=== PATIENT | female | born 1935 | race Caucasian/White ===

== ENCOUNTER 2016-09-17 05:31 | Inpatient (IN) | payer MEDICARE, MEDICAID ==
[~2016-09-17] VITALS: Ht 154.9 cm; Wt 72.6 kg
[2016-09-17] VITALS (9 sets, daily range): BP systolic 101–131; BP diastolic 31–62
[2016-09-17] MEDS ORDERED: DONEPEZIL HCL5 M2 ORAL (05:45)
[2016-09-17] MEDS ORDERED: CELEBREX100 MG ORAL (05:45)
[2016-09-17] MEDS ORDERED: AMLODIPINE BES2.5 MG ORAL (05:45)
[2016-09-17] MEDS ORDERED: COZAAR25 MG ORAL (05:57)
[2016-09-17] MEDS ORDERED: ASPIR 8181 MG ORAL (05:57)
--- NOTE | 2016-09-17 06:03 | Emergency Room Report ---
History of Present Illness General Chief Complaint: Syncope Source: Patient, Family Member, EMS (ALTA HERNANDEZ M.D.) Present Illness HPI This is a 80-year-old female. She has a history of hypertension and hyperlipidemia. She presents with a 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. She was brought in by her grandson. He said that she's been feeling sick with flulike illness for about a week now. Tonight she got up to use the restroom. She felt lightheaded and had a 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 and bathroom. She caught herself but did hit her head. No loss of consciousness. Better when lying flat. Denies any fever or chills. Denies any nausea vomiting. No chest pain. [place] lightheaded before syncope. (ALTA HERNANDEZ M.D.) Allergies: Coded Allergies: No Known Allergies (Unverified , 09/17/16) Patient History Past Medical History: see triage record, old chart reviewed Past Surgical History: other Pertinent Family History: none Social History: Denies: smoking Now: No Immunizations: other Reviewed Nursing Documentation: PMH: Agreed, PSxH: Agreed (ALTA HERNANDEZ M.D.) Nursing Documentation-PMH Hx Hypertension: Yes Hx Diabetes: Yes Hx Cerebrovascular Accident: Yes (ALTA HERNANDEZ M.D.) Review of Systems Eye: Denies: blurred vision, eye pain ENT: Denies: ear pain, nose congestion, throat swelling Respiratory: Denies: cough, shortness of breath Cardiovascular: Denies: chest pain, palpitations Gastrointestinal: Denies: abdominal pain, diarrhea, nausea, vomiting Musculoskeletal: Denies: back pain, joint pain Skin: Denies: rash Neurological: Denies: headache, numbness Endocrine: Denies: increased thirst, increased urine Hematologic/Lymphatic: Denies: easy bruising All Other Systems: negative except mentioned in HPI (ALTA HERNANDEZ M.D.) Physical Exam Vital Signs Date Time Temp Pulse Resp B/P Pulse Ox O2 Delivery O2 Flow Rate FiO2 09/17/16 05:36 98.2 59 14 127/34 99 Room Air vitals normal Sp02 EP Interpretation: reviewed, normal General Appearance: well appearing, no apparent distress, alert Head: normocephalic, atraumatic Eyes: bilateral eye EOMI, bilateral eye PERRL ENT: hearing grossly normal, normal pharynx Neck: full range of motion, supple, no meningismus Respiratory: chest non-tender, lungs clear, normal breath sounds Cardiovascular #1: regular rate, rhythm, no murmur Gastrointestinal: normal bowel sounds, non tender, no mass, no organomegaly, no bruit, non-distended Musculoskeletal: back normal, gait/station normal, normal range of motion Psychiatric: mood/affect normal Skin: warm/dry (ALTA HERNANDEZ M.D.) Medical Decision Making Diagnostic Impression: Primary Impression: Syncope Qualified Codes: R55 - Syncope and collapse Additional Impressions: Head injury, acute Qualified Codes: S09.90XA - Unspecified injury of head, initial encounter Hyperglycemia due to type 2 diabetes mellitus Qualified Codes: E11.65 - Type 2 diabetes mellitus with hyperglycemia Anemia Qualified Codes: D64.9 - Anemia, unspecified ER Course Patient presents with syncope. Most likely secondary to dehydration and orthostatic. We'll do cardiac workup. Based on her age and other risk factors , patient will be admitted for further workup. Lab Results Impression labs unremarkable. (ALTA HERNANDEZ M.D.) ER Course Dr Hernandez endorsed patient to me to f/up UA. No UTI. Admitted for syncope. No other acute issue in ED (DEON OLEA M.D.) EKG Diagnostic Results Rate: normal Rhythm: NSR ST Segments: no acute changes (ALTA HERNANDEZ M.D.) Rhythm Strip Diag. Results EP Interpretation: yes Rhythm: NSR, no PVC's, no ectopy (ALTA HERNANDEZ M.D.) Chest X-Ray Diagnostic Results EP Interpretation: Yes Findings: no consolidation, no effusion, no pneumothorax, no acute cardiopulmonary disease Number of Views: 1 (ALTA HERNANDEZ M.D.) CT/MRI/US Diagnostic Results CT/MRI/US Diagnostic Results : Imaging Test Ordered: CT head Impression negative per radiologist. (ALTA HERNANDEZ M.D.) Last Vital Signs Date Time Temp Pulse Resp B/P Pulse Ox O2 Delivery O2 Flow Rate FiO2 09/17/16 05:46 98.2 57 14 109/39 99 Room Air Status: improved (ALTA HERNANDEZ M.D.) Status: improved (DEON OLEA M.D.) Disposition: ADMITTED INPATIENT Condition: Serious Referrals: NON PHYSICIAN (PCP) ALTA HERNANDEZ M.D. Sep 17, 2016 06:03 DEON OLEA M.D. Sep 17, 2016 08:58
[2016-09-17 06:26] LABS: ALANINE AMINOTRANSFERASE 11 U/L (3-33); ALBUMIN/GLOBULIN RATIO 1.3 (1.0-2.7); ANION GAP 15 (5-15); ASPARTATE AMINO TRANSFERASE 14 U/L (5-40); CALCIUM 8.2 mg/dL (8.6-10.2); CARBON DIOXIDE 22 mEQ/L (20-30); CHLORIDE 103 mEQ/L (98-107); CREATININE 0.7 mg/dL (0.5-0.9); HEMOLYSIS 39; POTASSIUM 4.5 mEQ/L (3.4-4.9); SODIUM 140 mEQ/L (135-145); TOTAL PROTEIN 5.8 g/dL (6.6-8.7)
[2016-09-17 06:52] LABS: BASOPHILS % (AUTO) 0.7 % (0.0-2.0); LYMPHOCYTES % (AUTO) 21.1 % (20.0-45.0); MEAN CORPUSCULAR HEMOGLOBIN 27.5 PG (27.0-31.0); MEAN CORPUSCULAR HGB CONC 32.8 G/DL (32.0-36.0); MEAN CORPUSCULAR VOLUME 84 FL (80-99); MEAN PLATELET VOLUME 7.8 FL (6.5-10.1); MONOCYTES % (AUTO) 5.3 % (1.0-10.0); PLATELET COUNT 251 K/UL (150-450); RED BLOOD COUNT 3.16 M/UL (4.20-5.40); WHITE BLOOD COUNT 8.5 K/UL (4.8-10.8)
[2016-09-17 07:00] LABS: TROPONIN I < 0.30 ng/mL (<=0.30)
[2016-09-17 07:29] LABS: CKMB < 1.5 ng/mL (< 3.8)
[2016-09-17 07:56] LABS: APPEARANCE,URINE CLEAR; KETONES,URINE NEGATIVE (NEGATIVE); LEUKOCYTE ESTERASE ,URINE 1+ (NEGATIVE); NITRITE,URINE NEGATIVE (NEGATIVE); PH,URINE 6 (4.5-8.0); PROTEIN,URINE NEGATIVE (NEGATIVE); UROBILINOGEN,URINE NORMAL MG/DL (0.0-1.0)
[2016-09-17 08:10] LABS: BACTERIA,URINE FEW /HPF; RBC,URINE 0-2 /HPF (0 - 2); SQUAMOUS EPITHELIAL CELL,UR FEW /LPF (NONE/OCC)
[2016-09-17 08:11] LABS: MUCUS,URINE OCCASIONAL /LPF (NONE/OCC)
[2016-09-17] MEDS ORDERED: SERTRALINE20 MG/1 M1 PO (13:30)
[2016-09-17] MEDS ORDERED: GLIPIZIDE-METF1 EAC2 PO (13:30)
--- NOTE | 2016-09-17 14:37 | History and Physical ---
History of Present Illness General Date patient seen: Sep 17, 2016 Time patient seen: 14:27 Reason for Hospitalization: Syncope Present Illness HPI 80 yo ZELAYA F with PMH of HTN, DM2 and depression p/w 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. Having URI sx. no cp/sob/palpitations. CT head neg. Allergies: Coded Allergies: No Known Allergies (Unverified , 09/17/16) Medication History Scheduled Amlodipine Besylate* (Amlodipine Besylate*), 2.5 MG ORAL DAILY, (Reported) Aspirin* (Aspir 81*), 81 MG ORAL DAILY, (Reported) Celecoxib* (Celebrex*), 100 MG ORAL TWICE A DAY, (Reported) Donepezil Hcl* (Donepezil Hcl*), 5 MG ORAL DAILY, (Reported) Glipizide/Metformin Hcl (Glipizide-Metformin 5-500 Mg), 1 EACH PO DAILY, ( Reported) Losartan Potassium* (Cozaar*), 25 MG ORAL DAILY, (Reported) Miscellaneous Medications Sertraline Hcl (Sertraline Hcl), MG PO, (Reported) Patient History Healthcare decision maker Resuscitation status Full Code Advanced Directive on File Past Medical/Surgical History Past Medical/Surgical History: (1) Depression (2) HTN (hypertension) (3) DM2 (diabetes mellitus, type 2) Family History Family History: Patient reports no known family medical history. Social History Social History: (1) No significant social history Review of Systems All Other Systems: negative except mentioned in HPI Physical Exam General Appearance: no apparent distress, alert HEENT: normocephalic, atraumatic, anicteric, mucous membranes moist, PERRL, EOMI, pharynx normal, no JVD Neck: non-tender, supple Respiratory/Chest: lungs clear, normal breath sounds, no respiratory distress, no accessory muscle use Cardiovascular/Chest: normal peripheral pulses, normal rate, regular rhythm Abdomen: normal bowel sounds, non tender, soft, no mass Extremities: non-tender, normal inspection Skin Exam: warm/dry 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, no motor/sensory deficits, alert Musculoskeletal: normal muscle bulk Last 24 Hour Vital Signs Date Time Temp Pulse Resp B/P Pulse Ox O2 Delivery O2 Flow Rate FiO2 09/17/16 11:26 97.6 59 18 124/56 99 Room Air 09/17/16 11:10 77 09/17/16 11:05 57 09/17/16 11:00 59 09/17/16 09:22 97.2 60 18 131/62 99 Room Air 09/17/16 08:03 98.2 61 18 101/42 99 Room Air 09/17/16 07:35 98.2 61 18 101/42 99 Room Air 09/17/16 05:46 98.2 57 14 109/39 99 Room Air 09/17/16 05:36 98.2 59 14 127/34 99 Room Air Laboratory Tests Test 09/17/16 05:45 09/17/16 06:30 09/17/16 07:10 Sodium Level 140 mEQ/L (135-145) Potassium Level 4.5 mEQ/L (3.4-4.9) Chloride Level 103 mEQ/L (98-107) Carbon Dioxide Level 22 mEQ/L (20-30) Anion Gap 15 (5-15) Blood Urea Nitrogen 26 mg/dL (7-23) H Creatinine 0.7 mg/dL (0.5-0.9) Estimat Glomerular Filtration Rate mL/min (>60) Glucose Level 248 mg/dL (74-106) H Calcium Level 8.2 mg/dL (8.6-10.2) L Total Bilirubin 0.2 mg/dL (0.0-1.2) Aspartate Amino Transf (AST/SGOT) 14 U/L (5-40) Alanine Aminotransferase (ALT/SGPT) 11 U/L (3-33) Alkaline Phosphatase 50 U/L (35-104) Total Creatine Kinase 70 U/L (26-140) Creatine Kinase MB < 1.5 ng/mL (< 3.8) Creatine Kinase MB Relative Index Troponin I < 0.30 ng/mL (<=0.30) Total Protein 5.8 g/dL (6.6-8.7) L Albumin 3.3 g/dL (3.5-5.2) L Globulin 2.5 g/dL Albumin/Globulin Ratio 1.3 (1.0-2.7) White Blood Count 8.5 K/UL (4.8-10.8) Red Blood Count 3.16 M/UL (4.20-5.40) L Hemoglobin 8.7 G/DL (12.0-16.0) L Hematocrit 26.4 % (37.0-47.0) L Mean Corpuscular Volume 84 FL (80-99) Mean Corpuscular Hemoglobin 27.5 PG (27.0-31.0) Mean Corpuscular Hemoglobin Concent 32.8 G/DL (32.0-36.0) Red Cell Distribution Width 13.0 % (11.6-14.8) Platelet Count 251 K/UL (150-450) Mean Platelet Volume 7.8 FL (6.5-10.1) Neutrophils (%) (Auto) 72.0 % (45.0-75.0) Lymphocytes (%) (Auto) 21.1 % (20.0-45.0) Monocytes (%) (Auto) 5.3 % (1.0-10.0) Eosinophils (%) (Auto) 1.0 % (0.0-3.0) Basophils (%) (Auto) 0.7 % (0.0-2.0) Urine Color Pale yellow Urine Appearance Clear Urine pH 6 (4.5-8.0) Urine Specific [place] 1.015 (1.005-1.035) Urine Protein Negative (NEGATIVE) Urine Glucose (UA) Negative (NEGATIVE) Urine Ketones Negative (NEGATIVE) Urine Occult Blood Negative (NEGATIVE) Urine Nitrite Negative (NEGATIVE) Urine Bilirubin Negative (NEGATIVE) Urine Urobilinogen Normal MG/DL (0.0-1.0) Urine Leukocyte Esterase 1+ (NEGATIVE) H Urine RBC 0-2 /HPF (0 - 2) Urine WBC 2-4 /HPF (0 - 2) Urine Squamous Epithelial Cells Few /LPF (NONE/OCC) Urine Bacteria Few /HPF (NONE) Urine Mucus Occasional /LPF Height (Feet): 5 Height (Inches): 3.00 Weight (Pounds): 165 Medications Current Medications Medications (Trade) Dose Ordered Sig/Magali Route PRN Reason Start Time Stop Time Status Last Admin Dose Admin Pneumococcal Polyvalent Vaccine (Pneumovax) 0.5 ml ONCE ONCE IM 09/17/16 14:30 09/17/16 14:31 UNV Sodium Chloride (Sodium Chloride 1000ml bag) 1,000 ml @ 75 mls/hr [id number] IV 09/17/16 10:00 10/17/16 09:59 09/17/16 10:47 Assessment/Plan Problem List: (1) Syncope ICD Codes: R55 - Syncope and collapse SNOMED: 385776829 Qualifiers: Qualified Codes: R55 - Syncope and collapse (2) Depression ICD Codes: F32.9 - Major depressive disorder, single episode, unspecified SNOMED: 97422383 (3) HTN (hypertension) ICD Codes: I10 - Essential (primary) hypertension SNOMED: 02597129 (4) DM2 (diabetes mellitus, type 2) ICD Codes: E11.9 - Type 2 diabetes mellitus without complications SNOMED: 31925810 Status: doing well, stable, progressing Assessment/Plan Syncope likely 2/2 orthostasis, medication induced and 2/2 URI -IVF -orthostatic VS -hold home BP meds -influenza swab -pt/ot Jessica Meeks M.D. Sep 17, 2016 14:37
[2016-09-17] MEDS ORDERED: Pantoprazole Inj IV SCH (17:30)
[2016-09-17] MEDS ORDERED: Pneumococcal Vaccine 25mcg/0.5ml IM ONE (17:30)
[2016-09-17] MEDS ORDERED: Pantoprazole Inj IVP SCH (18:00)
[2016-09-17 18:19] LABS: MEAN CORPUSCULAR HEMOGLOBIN 27.4 PG (27.0-31.0); MEAN CORPUSCULAR HGB CONC 32.1 G/DL (32.0-36.0); MEAN CORPUSCULAR VOLUME 86 FL (80-99); MEAN PLATELET VOLUME 6.6 FL (6.5-10.1); PLATELET COUNT 238 K/UL (150-450); RED BLOOD COUNT 2.48 M/UL (4.20-5.40); RED CELL DISTRIBUTION WIDTH 13.2 % (11.6-14.8); WHITE BLOOD COUNT 9.7 K/UL (4.8-10.8)
[2016-09-17 18:36] LABS: ALANINE AMINOTRANSFERASE 8 U/L (3-33); ALBUMIN/GLOBULIN RATIO 1.4 (1.0-2.7); ANION GAP 14 (5-15); ASPARTATE AMINO TRANSFERASE 9 U/L (5-40); CALCIUM 7.6 mg/dL (8.6-10.2); CARBON DIOXIDE 23 mEQ/L (20-30); CHLORIDE 103 mEQ/L (98-107); CREATININE 0.7 mg/dL (0.5-0.9); HEMOLYSIS 1; POTASSIUM 3.8 mEQ/L (3.4-4.9); SODIUM 140 mEQ/L (135-145); TOTAL PROTEIN 5.3 g/dL (6.6-8.7)
[2016-09-17] MEDS ORDERED: Pantoprazole 80 MG in NS 250 ML IV SCH (19:00)
[2016-09-17 20:19] LABS: EOSINOPHILS % (MANUAL) 1 % (0-3); LYMPHOCYTES % (MANUAL) 23 % (20-45); NEUTROPHILS % (MANUAL) 72 % (45-75); NUCLEATED RED BLOOD CELLS 1 /100 WBC; TOTAL CELLS COUNTED 100
[2016-09-17 20:20] LABS: BAND NEUTROPHILS % (MANUAL) 0 % (0-8); BASOPHILS % (MANUAL) 0 % (0-2); HYPOCHROMASIA 2+; PLATELET ESTIMATE ADEQUATE; PLATELET MORPHOLOGY NORMAL; POLYCHROMASIA 1+
[2016-09-17] MEDS: Pantoprazole 80 MG in NS 250 ML IV SCH (22:05)
[2016-09-18] VITALS (27 sets, daily range): BP systolic 83–146; BP diastolic 25–63
[2016-09-18 05:36] LABS: BASOPHILS % (AUTO) 0.6 % (0.0-2.0); EOSINOPHILS % (AUTO) 1.7 % (0.0-3.0); LYMPHOCYTES % (AUTO) 37.8 % (20.0-45.0); MEAN CORPUSCULAR HEMOGLOBIN 28.3 PG (27.0-31.0); MEAN CORPUSCULAR HGB CONC 32.9 G/DL (32.0-36.0); MEAN CORPUSCULAR VOLUME 86 FL (80-99); MEAN PLATELET VOLUME 7.3 FL (6.5-10.1); MONOCYTES % (AUTO) 7.1 % (1.0-10.0); NEUTROPHILS % (AUTO) 52.8 % (45.0-75.0); PLATELET COUNT 191 K/UL (150-450); RED BLOOD COUNT 2.87 M/UL (4.20-5.40); WHITE BLOOD COUNT 8.7 K/UL (4.8-10.8)
[2016-09-18 06:05] LABS: ALANINE AMINOTRANSFERASE 9 U/L (3-33); ALBUMIN/GLOBULIN RATIO 1.3 (1.0-2.7); ANION GAP 12 (5-15); ASPARTATE AMINO TRANSFERASE 11 U/L (5-40); CALCIUM 7.2 mg/dL (8.6-10.2); CARBON DIOXIDE 21 mEQ/L (20-30); CHLORIDE 108 mEQ/L (98-107); CREATININE 0.7 mg/dL (0.5-0.9); HEMOLYSIS 7; SODIUM 141 mEQ/L (135-145); TOTAL PROTEIN 4.9 g/dL (6.6-8.7)
[2016-09-18] MEDS: Pantoprazole 80 MG in NS 250 ML IV SCH (08:30)
[2016-09-18] MEDS ORDERED: NS 550ML IV ONE (09:35)
--- NOTE | 2016-09-18 09:41 | Pre-Procedure Note/Attestation ---
Pre-Procedure Note/Attestation Complete Prior to Procedure Planned Procedure: not applicable Procedure Narrative: egd Indications for Procedure Pre-Operative Diagnosis: gib Attestation I attest that I discussed the nature of the procedure; its benefits; risks and complications; and alternatives (and the risks and benefits of such alternatives ), prior to the procedure, with the patient (or the patient's legal electronics parts sales representative). I attest that, if there was a reasonable possibility of needing a blood transfusion, the patient (or the patient's legal electronics parts sales representative) was given the [facility] standardized written summary, pursuant to the Wesly Mikaela Blood Safety Act ([place] Health and Safety Code # 1645, as amended). I attest that I re-evaluated the patient just prior to the surgery and that there has been no change in the patient's H&P, except as documented below: FRANK KAUFFMAN Sep 18, 2016 09:41
--- NOTE | 2016-09-18 09:47 | Endoscopy Procedure Note ---
Endoscopy Procedure Note Indication for Procedure: gib Procedures Performed: EGD Operative Findings/Diagnosis: gastritis Specimen: yes Pt Tolerated Procedure Well: Yes Estimated Blood Loss: none Anesthesiologist: chandra Anesthesia: MAC Implant(s) used?: No 50 yrs or older w/o bx or poly: Not Applicable 10yrs. F/U not recommended: Not Applicable FRANK KAUFFMAN Sep 18, 2016 09:46
--- NOTE | 2016-09-18 09:52 | Anethesia Preoperative Eval ---
Anesthesia Pre-op PMH/ROS General Date of Evaluation: Sep 18, 2016 Time of Evaluation: 09:36 Anesthesiologist: chandra ASA Score: ASA 3 Mallampati Score Class I : Soft palate, uvula, fauces, pillars visible Class II: Soft palate, uvula, fauces visible Class III: Soft palate, base of uvula visible Class IV: Only hard plate visible Mallampati Classification: Class II Surgeon: steve Diagnosis: GI bleed Surgical Procedure: egd Anesthesia History: none Allergies: Coded Allergies: No Known Allergies (Unverified , 09/17/16) Past Medical History Neurologic/Psychiatric: Reports: CVA, dementia Endocrine: Reports: DM Hematology/Immune: Reports: anemia Anesthesia Pre-op Phys. Exam Physician Exam Last Vital Signs Date Time Temp Pulse Resp B/P Pulse Ox O2 Delivery O2 Flow Rate FiO2 09/18/16 08:00 98.6 65 22 130/38 97 Room Air Airway Exam Mallampati Score: Class II Teeth: missing Anesthesia Pre-op A/P Labs Hematology Test 09/17/16 17:50 09/18/16 05:00 White Blood Count 9.7 K/UL (4.8-10.8) 8.7 K/UL (4.8-10.8) Red Blood Count 2.48 M/UL (4.20-5.40) L 2.87 M/UL (4.20-5.40) L Hemoglobin 6.8 G/DL (12.0-16.0) *L 8.1 G/DL (12.0-16.0) L Hematocrit 21.2 % (37.0-47.0) L 24.6 % (37.0-47.0) L Mean Corpuscular Volume 86 FL (80-99) 86 FL (80-99) Mean Corpuscular Hemoglobin 27.4 PG (27.0-31.0) 28.3 PG (27.0-31.0) Mean Corpuscular Hemoglobin Concent 32.1 G/DL (32.0-36.0) 32.9 G/DL (32.0-36.0) Red Cell Distribution Width 13.2 % (11.6-14.8) 13.0 % (11.6-14.8) Platelet Count 238 K/UL (150-450) 191 K/UL (150-450) Mean Platelet Volume 6.6 FL (6.5-10.1) 7.3 FL (6.5-10.1) Neutrophils (%) (Auto) % (45.0-75.0) 52.8 % (45.0-75.0) Lymphocytes (%) (Auto) % (20.0-45.0) 37.8 % (20.0-45.0) Monocytes (%) (Auto) % (1.0-10.0) 7.1 % (1.0-10.0) Eosinophils (%) (Auto) % (0.0-3.0) 1.7 % (0.0-3.0) Basophils (%) (Auto) % (0.0-2.0) 0.6 % (0.0-2.0) Differential Total Cells Counted 100 Neutrophils % (Manual) 72 % (45-75) Lymphocytes % (Manual) 23 % (20-45) Monocytes % (Manual) 4 % (1-10) Eosinophils % (Manual) 1 % (0-3) Basophils % (Manual) 0 % (0-2) Band Neutrophils 0 % (0-8) Nucleated Red Blood Cells 1 /100 WBC Platelet Estimate Adequate Platelet Morphology Normal Polychromasia 1+ Hypochromasia 2+ Chemistry Test 09/17/16 17:50 09/18/16 05:00 Sodium Level 140 mEQ/L (135-145) 141 mEQ/L (135-145) Potassium Level 3.8 mEQ/L (3.4-4.9) 4.0 mEQ/L (3.4-4.9) Chloride Level 103 mEQ/L (98-107) 108 mEQ/L (98-107) H Carbon Dioxide Level 23 mEQ/L (20-30) 21 mEQ/L (20-30) Anion Gap 14 (5-15) 12 (5-15) Blood Urea Nitrogen 29 mg/dL (7-23) H 23 mg/dL (7-23) Creatinine 0.7 mg/dL (0.5-0.9) 0.7 mg/dL (0.5-0.9) Estimat Glomerular Filtration Rate mL/min (>60) mL/min (>60) Glucose Level 217 mg/dL (74-106) H 141 mg/dL (74-106) H Calcium Level 7.6 mg/dL (8.6-10.2) L 7.2 mg/dL (8.6-10.2) L Total Bilirubin < 0.2 mg/dL (0.0-1.2) 0.5 mg/dL (0.0-1.2) Aspartate Amino Transf (AST/SGOT) 9 U/L (5-40) 11 U/L (5-40) Alanine Aminotransferase (ALT/SGPT) 8 U/L (3-33) 9 U/L (3-33) Alkaline Phosphatase 43 U/L (35-104) 39 U/L (35-104) Total Protein 5.3 g/dL (6.6-8.7) L 4.9 g/dL (6.6-8.7) L Albumin 3.1 g/dL (3.5-5.2) L 2.8 g/dL (3.5-5.2) L Globulin 2.2 g/dL 2.1 g/dL Albumin/Globulin Ratio 1.4 (1.0-2.7) 1.3 (1.0-2.7) Risk Assessment & Plan Plan: propofol Status Change Before Surgery: Heber mAaro MD Sep 18, 2016 09:52
--- NOTE | 2016-09-18 09:53 | Immediate Post-Op Evaluation ---
Immediate Post-Op Evalulation Immediate Post-Op Evalulation Date of Evaluation: Sep 18, 2016 Time of Evaluation: 10:07 IV Fluids: 200 Blood Pressure Systolic: 107 Blood Pressure Diastolic: 41 Pulse Rate: 62 Respiratory Rate: 25 O2 Sat by Pulse Oximetry: 100 Temperature (Fahrenheit): 98.6 Pain Score (1-10): 0 Nausea: No Vomiting: No Complications none Patient Status: awake, patent, none Hydration Status: adequate Heber Dunn MD Sep 18, 2016 09:53
--- NOTE | 2016-09-18 09:54 | 48 Hour Post Anesthesia Eval ---
Post Anesthesia Evaluation Date of Evaluation: Sep 18, 2016 Time of Evaluation: 11:30 Blood Pressure Systolic: 110 0: 50 Pulse Rate: 65 Respiratory Rate: 20 Temperature (Fahrenheit): 98.4 O2 Sat by Pulse Oximetry: 100 Airway: patent Nausea: No Vomiting: No Pain Intensity: 0 Hydration Status: adequate Cardiopulmonary Status: stable Mental Status/LOC: patient returned to baseline Follow-up Care/Observations: n/a Post-Anesthesia Complications: tolerated well Follow-up care needed: N/A Heber Dunn MD Sep 18, 2016 09:54
[2016-09-18 17:03] LABS: MEAN CORPUSCULAR HEMOGLOBIN 28.8 PG (27.0-31.0); MEAN CORPUSCULAR HGB CONC 33.1 G/DL (32.0-36.0); MEAN CORPUSCULAR VOLUME 87 FL (80-99); MEAN PLATELET VOLUME 6.8 FL (6.5-10.1); PLATELET COUNT 149 K/UL (150-450); RED BLOOD COUNT 1.91 M/UL (4.20-5.40); RED CELL DISTRIBUTION WIDTH 13.2 % (11.6-14.8); WHITE BLOOD COUNT 10.4 K/UL (4.8-10.8)
[2016-09-18 17:08] LABS: EOSINOPHILS % (AUTO) 1.6 % (0.0-3.0); LYMPHOCYTES % (AUTO) 23.2 % (20.0-45.0); MONOCYTES % (AUTO) 5.6 % (1.0-10.0); NEUTROPHILS % (AUTO) 68.6 % (45.0-75.0)
--- NOTE | 2016-09-18 18:37 | Procedure Note ---
DATE OF PROCEDURE: 09/18/2016 SURGEON: Pradip Gu M.D. PROCEDURE: Upper endoscopy with biopsy. ANESTHESIOLOGIST: Heber Dunn M.D. INSTRUMENT: Olympus adult flexible upper endoscope. INDICATION: Upper gastrointestinal bleeding. REASON FOR PROCEDURE: The procedure, risks, benefits, and possible consequences, including hemorrhage, aspiration, perforation and infection, and alternative treatments, were explained to the patient/legal guardian by Dr. Pradip Gu and the patient/legal guardian understood and accepted these risks. DESCRIPTION OF PROCEDURE: After informed consent was obtained and the patient was adequately sedated, the Olympus upper endoscope was advanced from mouth into the second portion of the duodenum and retroflexion was performed in the stomach. The patient had diffuse gastritis. Random biopsy from antrum was obtained to rule out H. pylori infection. Otherwise, the rest of the upper endoscopic examination grossly was within normal limits. The patient tolerated the procedure without any complication. SUMMARY OF FINDINGS: Gastritis, status post biopsy. Otherwise, normal upper endoscopic examination. RECOMMENDATIONS: The patient transferred back out of ICU to telemetry bed. Stop the Protonix drip. Followup biopsy results. Plan colonoscopy on Wednesday unless the patient has recurrent significant lower gastrointestinal bleeding otherwise plan for colonoscopy on Wednesday. Pradip Gu M.D. DR: ISSA JOB#: [id number] CC:
--- NOTE | 2016-09-18 18:57 | General Progress Note ---
Assessment/Plan Problem List: (1) Syncope ICD Codes: R55 - Syncope and collapse SNOMED: 605403711 Qualifiers: Qualified Codes: R55 - Syncope and collapse (2) Depression ICD Codes: F32.9 - Major depressive disorder, single episode, unspecified SNOMED: 13883945 (3) HTN (hypertension) ICD Codes: I10 - Essential (primary) hypertension SNOMED: 14950110 (4) DM2 (diabetes mellitus, type 2) ICD Codes: E11.9 - Type 2 diabetes mellitus without complications SNOMED: 84056708 (5) Acute blood loss anemia ICD Codes: D62 - Acute posthemorrhagic anemia SNOMED: 370679839 (6) GI bleed ICD Codes: K92.2 - Gastrointestinal hemorrhage, unspecified SNOMED: 16798985 Status: progressing Assessment/Plan Syncope likely 2/2 orthostasis due to gib and vasovagal -IVF -iv ppi -transfuse prbc -colo tomorrow -hold home BP meds Subjective Date patient seen: Sep 18, 2016 Time patient seen: 18:54 Allergies: Coded Allergies: No Known Allergies (Unverified , 09/17/16) Subjective yesterday pt with GIB, tarry stool; EGD today showed gastritis; acute blood loss s/p transfusion; in 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 digital marketing apprentice for 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 on commode and bloody BM Objective Last 24 Hour Vital Signs Date Time Temp Pulse Resp B/P Pulse Ox O2 Delivery O2 Flow Rate FiO2 09/18/16 18:00 87 20 113/48 97 Room Air 09/18/16 17:00 78 18 117/31 97 Room Air 09/18/16 16:00 74 09/18/16 16:00 98.8 74 21 122/25 100 Room Air 09/18/16 15:30 72 18 109/25 100 Room Air 09/18/16 15:10 70 17 94/28 100 Room Air 09/18/16 15:00 70 20 100/34 100 Room Air 09/18/16 14:50 77 21 83/63 100 Room Air 09/18/16 14:40 80 23 100/38 100 Room Air 09/18/16 14:30 96 23 126/31 100 Room Air 09/18/16 14:00 98.7 74 22 146/41 100 Room Air 09/18/16 13:00 66 20 132/43 97 Room Air 09/18/16 12:00 64 09/18/16 12:00 71 16 127/45 97 Room Air 09/18/16 11:33 65 20 100 09/18/16 11:00 60 19 102/35 97 Room Air 09/18/16 10:05 62 25 100 09/18/16 09:48 65 19 133/46 97 Room Air 09/18/16 08:00 98.6 65 22 130/38 97 Room Air 09/18/16 08:00 64 09/18/16 05:00 77 22 131/43 97 Room Air 09/18/16 04:00 70 09/18/16 04:00 98.7 70 14 125/39 95 Room Air 09/18/16 03:00 79 18 138/44 97 Room Air 09/18/16 02:00 67 17 130/42 95 Room Air 09/18/16 01:00 66 18 124/48 95 Room Air 09/18/16 00:15 66 17 118/47 94 Room Air 09/18/16 00:00 65 09/18/16 00:00 98.6 65 17 127/43 94 Room Air 09/17/16 23:03 78 18 112/54 96 Room Air 09/17/16 22:00 78 15 109/31 99 Room Air 09/17/16 21:00 72 09/17/16 21:00 99.0 71 19 114/32 97 Room Air 09/17/16 20:00 97.6 82 20 123/54 98 Room Air Intake and Output 09/17/16 09/18/16 19:00 07:00 Intake Total 2700 ml 1225 ml Output Total 30 ml 700 ml Balance 2670 ml 525 ml Intake Oral 200 ml IV Total 1000 ml 1225 ml Other 1500 ml Output Urine Total 30 ml 700 ml # Voids 1 5 # Bowel Movements 2 Laboratory Tests 09/18/16 05:00: White Blood Count 8.7, Red Blood Count 2.87L, Hemoglobin 8.1L, Hematocrit 24.6L , Mean Corpuscular Volume 86, Mean Corpuscular Hemoglobin 28.3, Mean Corpuscular Hemoglobin Concent 32.9, Red Cell Distribution Width 13.0, Platelet Count 191, Mean Platelet Volume 7.3, Neutrophils (%) (Auto) 52.8, Lymphocytes (% ) (Auto) 37.8, Monocytes (%) (Auto) 7.1, Eosinophils (%) (Auto) 1.7, Basophils ( %) (Auto) 0.6, Sodium Level 141, Potassium Level 4.0, Chloride Level 108H, Carbon Dioxide Level 21, Anion Gap 12, Blood Urea Nitrogen 23, Creatinine 0.7, Estimat Glomerular Filtration Rate , Glucose Level 141H, Calcium Level 7.2L, Total Bilirubin 0.5, Aspartate Amino Transf (AST/SGOT) 11, Alanine Aminotransferase (ALT/SGPT) 9, Alkaline Phosphatase 39, Total Protein 4.9L, Albumin 2.8L, Globulin 2.1, Albumin/Globulin Ratio 1.3 09/18/16 16:45: White Blood Count 10.4, Red Blood Count 1.91L, Hemoglobin 5.5#*L, Hematocrit 16.6#L, Mean Corpuscular Volume 87, Mean Corpuscular Hemoglobin 28.8, Mean Corpuscular Hemoglobin Concent 33.1, Red Cell Distribution Width 13.2, Platelet Count 149L, Mean Platelet Volume 6.8, Neutrophils (%) (Auto) 68.6, Lymphocytes ( %) (Auto) 23.2, Monocytes (%) (Auto) 5.6, Eosinophils (%) (Auto) 1.6, Basophils (%) (Auto) 1.0 Height (Feet): 5 Height (Inches): 2.00 Weight (Pounds): 165 Objective General Appearance: no apparent distress, alert; pallor HEENT: normocephalic, atraumatic, anicteric, mucous membranes moist, PERRL, EOMI, pharynx normal, no JVD Neck: non-tender, supple Respiratory/Chest: lungs clear, normal breath sounds, no respiratory distress, no accessory muscle use Cardiovascular/Chest: normal peripheral pulses, normal rate, regular rhythm Abdomen: normal bowel sounds, non tender, soft, no mass Extremities: non-tender, normal inspection Skin Exam: warm/dry 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 Sep 18, 2016 18:57
[2016-09-18] MEDS ORDERED: Nulytely 4L ORAL ONE (20:00)
[2016-09-18] MEDS: Pantoprazole Inj IVP SCH (21:32)
[2016-09-19] VITALS (24 sets, daily range): BP systolic 97–137; BP diastolic 21–98
[2016-09-19 05:56] LABS: MEAN CORPUSCULAR HEMOGLOBIN 29.6 PG (27.0-31.0); MEAN CORPUSCULAR VOLUME 87 FL (80-99); PLATELET COUNT 132 K/UL (150-450); RED BLOOD COUNT 2.38 M/UL (4.20-5.40); RED CELL DISTRIBUTION WIDTH 12.9 % (11.6-14.8); WHITE BLOOD COUNT 10.6 K/UL (4.8-10.8)
[2016-09-19 06:20] LABS: INR 1.2 (0.9-1.1); PROTHROMBIN TIME 12.5 SEC (9.30-11.50)
[2016-09-19 06:27] LABS: ALANINE AMINOTRANSFERASE 8 U/L (3-33); ALBUMIN/GLOBULIN RATIO 1.4 (1.0-2.7); ANION GAP 11 (5-15); ASPARTATE AMINO TRANSFERASE 10 U/L (5-40); CARBON DIOXIDE 21 mEQ/L (20-30); CHLORIDE 109 mEQ/L (98-107); CREATININE 0.6 mg/dL (0.5-0.9); HEMOLYSIS 4; POTASSIUM 3.6 mEQ/L (3.4-4.9); SODIUM 141 mEQ/L (135-145); TOTAL PROTEIN 4.4 g/dL (6.6-8.7)
[2016-09-19] MEDS ORDERED: Fleet's Enema 133ml RECTAL ONE (07:15)
--- NOTE | 2016-09-19 08:04 | Pre-Procedure Note/Attestation ---
Pre-Procedure Note/Attestation Complete Prior to Procedure Planned Procedure: not applicable Procedure Narrative: colonoscopy Indications for Procedure Pre-Operative Diagnosis: gib Attestation I attest that I discussed the nature of the procedure; its benefits; risks and complications; and alternatives (and the risks and benefits of such alternatives ), prior to the procedure, with the patient (or the patient's legal food service representative). I attest that, if there was a reasonable possibility of needing a blood transfusion, the patient (or the patient's legal food service representative) was given the [facility] standardized written summary, pursuant to the Wesly Mikaela Blood Safety Act ([place] Health and Safety Code # 1645, as amended). I attest that I re-evaluated the patient just prior to the surgery and that there has been no change in the patient's H&P, except as documented below: FRANK KAUFFMAN Sep 19, 2016 08:04
--- NOTE | 2016-09-19 08:32 | Endoscopy Procedure Note ---
Endoscopy Procedure Note Indication for Procedure: gib Procedures Performed: colonoscopy Operative Findings/Diagnosis: old blood Specimen: none Pt Tolerated Procedure Well: Yes Estimated Blood Loss: none Anesthesiologist: sandra Anesthesia: MAC Implant(s) used?: No 50 yrs or older w/o bx or poly: Not Applicable 10yrs. F/U not recommended: Not Applicable FRANK KAUFFMAN Sep 19, 2016 08:32
--- NOTE | 2016-09-19 08:34 | Anethesia Preoperative Eval ---
Anesthesia Pre-op PMH/ROS General Date of Evaluation: Sep 19, 2016 Anesthesiologist: Demetrius ASA Score: ASA 3 Mallampati Score Class I : Soft palate, uvula, fauces, pillars visible Class II: Soft palate, uvula, fauces visible Class III: Soft palate, base of uvula visible Class IV: Only hard plate visible Mallampati Classification: Class II Surgeon: Riccardo Diagnosis: Anemia Surgical Procedure: Colonoscopy Anesthesia History: none Family History: no anesthesia problems Allergies: Coded Allergies: No Known Allergies (Unverified , 09/17/16) Medications: see eMAR Past Medical History Cardiovascular: Denies: CAD, HTN, [place], arrhythmia, other, valve dz Pulmonary: Denies: COPD, ANTONI, asthma, other Gastrointestinal/Genitourinary: Reports: GERD, Denies: CRI, ESRD, other Neurologic/Psychiatric: Reports: CVA, dementia, Denies: TIA, depression/anxiety, other Endocrine: Reports: DM, Denies: hypothyroidism, other, steroids HEENT: Denies: COUNCIL (L), COUNCIL (R), cataract (L), cataract (R), glaucoma, other Hematology/Immune: Reports: anemia, Denies: DVT, bleeding disorder, other Musculoskeletal/Integumentary: Denies: DDD, DJD, OA, RA, edema, other Anesthesia Pre-op Phys. Exam Physician Exam Last Vital Signs Date Time Temp Pulse Resp B/P Pulse Ox O2 Delivery O2 Flow Rate FiO2 09/19/16 08:00 68 09/19/16 07:48 21 102/28 95 Room Air 09/19/16 04:00 98.0 09/18/16 19:00 2.0 28 Constitutional: NAD Cardiovascular: RRR Respiratory: CTA Airway Exam Mallampati Score: Class II Anesthesia Pre-op A/P Labs Hematology Test 09/18/16 16:45 09/19/16 05:00 White Blood Count 10.4 K/UL (4.8-10.8) 10.6 K/UL (4.8-10.8) Red Blood Count 1.91 M/UL (4.20-5.40) L 2.38 M/UL (4.20-5.40) L Hemoglobin 5.5 G/DL (12.0-16.0) 7.0 G/DL (12.0-16.0) L Hematocrit 16.6 % (37.0-47.0) #L 20.7 % (37.0-47.0) L Mean Corpuscular Volume 87 FL (80-99) 87 FL (80-99) Mean Corpuscular Hemoglobin 28.8 PG (27.0-31.0) 29.6 PG (27.0-31.0) Mean Corpuscular Hemoglobin Concent 33.1 G/DL (32.0-36.0) 34.0 G/DL (32.0-36.0) Red Cell Distribution Width 13.2 % (11.6-14.8) 12.9 % (11.6-14.8) Platelet Count 149 K/UL (150-450) L 132 K/UL (150-450) L Mean Platelet Volume 6.8 FL (6.5-10.1) 7.0 FL (6.5-10.1) Neutrophils (%) (Auto) 68.6 % (45.0-75.0) % (45.0-75.0) Lymphocytes (%) (Auto) 23.2 % (20.0-45.0) % (20.0-45.0) Monocytes (%) (Auto) 5.6 % (1.0-10.0) % (1.0-10.0) Eosinophils (%) (Auto) 1.6 % (0.0-3.0) % (0.0-3.0) Basophils (%) (Auto) 1.0 % (0.0-2.0) % (0.0-2.0) Neutrophils % (Manual) Pending Lymphocytes % (Manual) Pending Platelet Estimate Pending Platelet Morphology Pending Coagulation Test 09/19/16 05:00 Prothrombin Time 12.5 SEC (9.30-11.50) H Prothromb Time International Ratio 1.2 (0.9-1.1) H Activated Partial Thromboplast Time 27 SEC (23-33) Chemistry Test 09/19/16 05:00 Sodium Level 141 mEQ/L (135-145) Potassium Level 3.6 mEQ/L (3.4-4.9) Chloride Level 109 mEQ/L (98-107) H Carbon Dioxide Level 21 mEQ/L (20-30) Anion Gap 11 (5-15) Blood Urea Nitrogen 21 mg/dL (7-23) Creatinine 0.6 mg/dL (0.5-0.9) Estimat Glomerular Filtration Rate mL/min (>60) Glucose Level 140 mg/dL (74-106) H Calcium Level 7.0 mg/dL (8.6-10.2) L Total Bilirubin 0.5 mg/dL (0.0-1.2) Aspartate Amino Transf (AST/SGOT) 10 U/L (5-40) Alanine Aminotransferase (ALT/SGPT) 8 U/L (3-33) Alkaline Phosphatase 32 U/L (35-104) L Total Protein 4.4 g/dL (6.6-8.7) L Albumin 2.6 g/dL (3.5-5.2) L Globulin 1.8 g/dL Albumin/Globulin Ratio 1.4 (1.0-2.7) Carcinoembryonic Antigen 1.3 ng/mL Risk Assessment & Plan Assessment: ASa IIIE Plan: MAC Status Change Before Surgery: No Pre-Antibiotics Drug: N./A AKUA MARIE M.D. Sep 19, 2016 08:34
--- NOTE | 2016-09-19 08:35 | Immediate Post-Op Evaluation ---
Immediate Post-Op Evalulation Immediate Post-Op Evalulation Procedure: Colonoscopy Date of Evaluation: Sep 19, 2016 Time of Evaluation: 08:36 IV Fluids: 250 Blood Products: 0 Estimated Blood Loss: 0 Urinary Output: 0 Blood Pressure Systolic: 116 Blood Pressure Diastolic: 53 Pulse Rate: 65 Respiratory Rate: 17 O2 Sat by Pulse Oximetry: 100 Pain Score (1-10): 100 Nausea: No Vomiting: No Complications 0 Patient Status: awake, reacts, patent, none Hydration Status: adequate Drug: N/.A AKUA MARIE M.D. Sep 19, 2016 08:35
--- NOTE | 2016-09-19 08:36 | 48 Hour Post Anesthesia Eval ---
Post Anesthesia Evaluation Procedure: Colonoscopy Date of Evaluation: Sep 19, 2016 Time of Evaluation: 07:00 Blood Pressure Systolic: 133 0: 42 Pulse Rate: 78 Respiratory Rate: 21 O2 Sat by Pulse Oximetry: 98 Airway: patent Nausea: No Vomiting: No Pain Intensity: 0 Hydration Status: adequate Cardiopulmonary Status: at baseline Mental Status/LOC: patient returned to baseline Post-Anesthesia Complications: 0 Follow-up care needed: N/A - further care as per primary team AKUA MARIE M.D. Sep 19, 2016 08:35
[2016-09-19] MEDS: Pantoprazole Inj IVP SCH ×2 (08:44→21:19)
[2016-09-19 11:44] LABS: BAND NEUTROPHILS % (MANUAL) 1 % (0-8); EOSINOPHILS % (MANUAL) 1 % (0-3); LYMPHOCYTES % (MANUAL) 14 % (20-45); NEUTROPHILS % (MANUAL) 79 % (45-75); TOTAL CELLS COUNTED 100
[2016-09-19 11:45] LABS: BASOPHILS % (MANUAL) 0 % (0-2); PLATELET ESTIMATE ADEQUATE; PLATELET MORPHOLOGY NORMAL
[2016-09-19] MEDS ORDERED: NS 275ml ONE ×3 (14:35→16:03)
[2016-09-19] MEDS ORDERED: Tubing Blood Filter IV ONE ×3 (14:35→16:03)
--- NOTE | 2016-09-19 17:54 | General Progress Note ---
Assessment/Plan Status: stable Assessment/Plan (1) Syncope ICD Codes: R55 - Syncope and collapse SNOMED: 807001470 Qualifiers: Qualified Codes: R55 - Syncope and collapse (2) Depression ICD Codes: F32.9 - Major depressive disorder, single episode, unspecified SNOMED: 81105015 (3) HTN (hypertension) ICD Codes: I10 - Essential (primary) hypertension SNOMED: 66030516 (4) DM2 (diabetes mellitus, type 2) ICD Codes: E11.9 - Type 2 diabetes mellitus without complications SNOMED: 79407452 (5) Acute blood loss anemia ICD Codes: D62 - Acute posthemorrhagic anemia SNOMED: 780196376 (6) GI bleed ICD Codes: K92.2 - Gastrointestinal hemorrhage, unspecified SNOMED: 29688546 Status: progressing Assessment/Plan - continue close observation in ICU - child monitor - seral CBC, Chem - appreciate GI recs - NPO - mIVF - PPI IV BID - c/w other mgt Subjective Date patient seen: Sep 19, 2016 Constitutional: Denies: chills, diaphoresis, fever, malaise, no symptoms, other , weakness HEENT: Denies: blurred vision, double vision, ear discharge, ear pain, eye pain , mouth pain, mouth swelling, no symptoms, nose congestion, nose pain, other, tearing, throat pain, throat swelling Cardiovascular: Denies: chest pain, edema, irregular heart rate, lightheadedness, no symptoms, other, palpitations, syncope Respiratory: Denies: SOB at rest, SOB with excertion, cough, no symptoms, orthopnea, other, shortness of breath, sputum, stridor, wheezing Gastrointestinal/Abdominal: Denies: abdomen distended, abdominal pain, black stools, blood in stool, constipated, diarrhea, difficulty swallowing, nausea, no symptoms, other, poor appetite, poor fluid intake, rectal bleeding, tarry stools, vomiting Genitourinary: Denies: burning, discharge, flank pain, frequency, hematuria, incontinence, no symptoms, other, pain, urgency Neurologic/Psychiatric: Denies: anxiety, depressed, emotional problems, headache, no symptoms, numbness, other, paresthesia, pre-existing deficit, seizure, tingling, tremors, weakness Endocrine: Denies: excessive sweating, flushing, increased hunger, increased thirst, increased urine, intolerance to cold, intolerance to heat, no symptoms, other, unexplained weight gain, unexplained weight loss Hematologic/Lymphatic: Denies: anemia, easy bleeding, easy bruising, no symptoms, other Allergies: Coded Allergies: No Known Allergies (Unverified , 09/17/16) Subjective No acute events s/p [place] today, unremarkable Remains in ICU for close hemodynamic monitoring s/p 1 unit prbc today (s/p 5 units total) NPO Objective Last 24 Hour Vital Signs Date Time Temp Pulse Resp B/P Pulse Ox O2 Delivery O2 Flow Rate FiO2 09/19/16 17:00 62 17 128/47 98 Room Air 09/19/16 16:00 66 09/19/16 16:00 97.5 66 21 132/36 97 Room Air 09/19/16 15:00 66 18 121/36 97 Room Air 09/19/16 14:00 67 25 113/31 99 Room Air 09/19/16 13:00 66 21 114/35 93 Room Air 09/19/16 12:00 68 09/19/16 12:00 97.1 68 22 116/35 97 Room Air 09/19/16 11:00 76 19 125/36 100 Room Air 09/19/16 10:00 97.4 70 14 113/30 95 Room Air 09/19/16 09:00 69 21 109/32 96 Room Air 09/19/16 08:35 65 17 100 09/19/16 08:00 68 09/19/16 07:48 77 21 102/28 95 Room Air 09/19/16 07:00 78 21 112/21 95 Room Air 09/19/16 06:00 79 22 118/21 95 Room Air 09/19/16 05:00 78 22 115/27 95 Room Air 09/19/16 04:00 87 09/19/16 04:00 98.0 80 22 117/27 95 Room Air 09/19/16 03:00 77 20 112/33 96 Room Air 09/19/16 02:00 77 20 126/44 98 Room Air 09/19/16 01:00 73 22 129/35 95 Room Air 09/19/16 00:00 87 09/19/16 00:00 98.4 79 22 97/30 98 Room Air 09/18/16 23:00 81 22 139/41 98 Room Air 09/18/16 22:03 77 18 131/42 96 Room Air 09/18/16 21:00 80 18 118/39 96 Room Air 09/18/16 20:00 75 09/18/16 20:00 97.8 81 18 132/28 95 Room Air 09/18/16 19:00 100 Nasal Cannula 2.0 28 09/18/16 19:00 81 18 128/28 95 Room Air 09/18/16 19:00 Nasal Cannula 2.0 28 09/18/16 18:00 87 20 113/48 97 Room Air Intake and Output 09/18/16 09/19/16 19:00 07:00 Intake Total 1800 ml 5730 ml Output Total 1550 ml 0 ml Balance 250 ml 5730 ml Intake Oral 3410 ml IV Total 1800 ml 1020 ml Blood Product 750 ml Other 550 ml Output Urine Total 1000 ml 0 ml Stool Total 550 ml # Voids 4 9 # Bowel Movements 2 3 Laboratory Tests 09/19/16 05:00: White Blood Count 10.6, Red Blood Count 2.38L, Hemoglobin 7.0L, Hematocrit 20.7L , Mean Corpuscular Volume 87, Mean Corpuscular Hemoglobin 29.6, Mean Corpuscular Hemoglobin Concent 34.0, Red Cell Distribution Width 12.9, Platelet Count 132L, Mean Platelet Volume 7.0, Neutrophils (%) (Auto) , Lymphocytes (%) ( Auto) , Monocytes (%) (Auto) , Eosinophils (%) (Auto) , Basophils (%) (Auto) , Differential Total Cells Counted 100, Neutrophils % (Manual) 79H, Lymphocytes % (Manual) 14L, Monocytes % (Manual) 5, Eosinophils % (Manual) 1, Basophils % ( Manual) 0, Band Neutrophils 1, Platelet Estimate Adequate, Platelet Morphology Normal, Red Blood Cell Morphology Normal, Prothrombin Time 12.5H, Prothromb Time International Ratio 1.2H, Activated Partial Thromboplast Time 27, Sodium Level 141, Potassium Level 3.6, Chloride Level 109H, Carbon Dioxide Level 21, Anion Gap 11, Blood Urea Nitrogen 21, Creatinine 0.6, Estimat Glomerular Filtration Rate , Glucose Level 140H, Calcium Level 7.0L, Total Bilirubin 0.5, Aspartate Amino Transf (AST/SGOT) 10, Alanine Aminotransferase (ALT/SGPT) 8, Alkaline Phosphatase 32L, Total Protein 4.4L, Albumin 2.6L, Globulin 1.8, Albumin/Globulin Ratio 1.4, Carcinoembryonic Antigen 1.3 Height (Feet): 5 Height (Inches): 1.00 Weight (Pounds): 160 General Appearance: WD/WN, no apparent distress, alert EENT: PERRL/EOMI, normal ENT inspection Neck: non-tender, supple Cardiovascular: normal peripheral pulses, normal rate, regular rhythm, no gallop/murmur, no JVD Respiratory/Chest: lungs clear, normal breath sounds, no accessory muscle use Abdomen: normal bowel sounds, non tender, soft, no organomegaly, no mass Edema: no edema noted Arm (L), no edema noted Arm (R), no edema noted Leg (L), no edema noted Leg (R), no edema noted Pedal (L), no edema noted Pedal (R), no edema noted 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
--- NOTE | 2016-09-19 23:07 | Procedure Note ---
DATE OF PROCEDURE: 09/19/2016 SURGEON: Pradip Gu M.D. PROCEDURE: Colonoscopy. ANESTHESIA: Dr. Jimenez. INSTRUMENT: Olympus adult flexible colonoscope. INDICATION: Gastrointestinal bleeding. REASON FOR PROCEDURE: The procedure, risks, benefits, and possible consequences, including hemorrhage, aspiration, perforation and infection, and alternative treatments, were explained to the patient/legal guardian by Dr. Pradip Gu and the patient/legal guardian understood and accepted these risks. PROCEDURE: After informed consent, the patient was adequately sedated, first rectal exam, which was normal. Then, the scope was advanced from the rectum into the ileocecal valve area. This was a very challenging procedure given there was a lot of old blood throughout the colon especially on the left compared to right. As we got closer to the right colon there was less amount of blood and less amount of blood clots. So, this examination given this prep was challenging. There is a lot of old blood throughout the colon. As I mentioned, mostly in the left colon compared to right. There is no obvious source of bleeding at this time. There is no obvious large tics. There is no polyp. There is no obvious source at this time that we can obviously see. Retroflexion of rectum showed evidence of few nonbleeding internal hemorrhoids. SUMMARY FINDINGS: 1. Challenging and difficult procedure given the prep and old blood throughout the colon especially in the left. 2. Most likely the patient is bleeding from the lesion in the left colon possibly a diverticuli, which was not seen. There is no active bleeding at this time. RECOMMENDATIONS: The patient to be kept NPO for today and blood to be transfused to keep hemoglobin between 7 to 8. Consider repeat colonoscopy tomorrow if the patient rebleeds. Pradip Gu M.D. DR: DENA JOB#: [id number] CC:
[2016-09-20] VITALS (24 sets, daily range): BP systolic 111–160; BP diastolic 30–95
[2016-09-20 04:48] LABS: MEAN CORPUSCULAR HEMOGLOBIN 30.6 PG (27.0-31.0); MEAN CORPUSCULAR HGB CONC 33.6 G/DL (32.0-36.0); MEAN CORPUSCULAR VOLUME 91 FL (80-99); MEAN PLATELET VOLUME 6.6 FL (6.5-10.1); PLATELET COUNT 143 K/UL (150-450); RED BLOOD COUNT 2.51 M/UL (4.20-5.40); RED CELL DISTRIBUTION WIDTH 13.4 % (11.6-14.8); WHITE BLOOD COUNT 6.3 K/UL (4.8-10.8)
[2016-09-20] MEDS: Pantoprazole Inj IVP SCH ×2 (08:43→21:06)
--- NOTE | 2016-09-20 09:39 | Diagnostic Imaging Report ---
Indication: Chest Pain Comparison: None A single view chest radiograph was obtained. Findings: No definite infiltrate or pulmonary vascular congestion identified. The heart is enlarged. The aorta is mildly enlarged consistent with atherosclerotic vascular disease. The bones are osteopenic. Impression: No acute disease
--- NOTE | 2016-09-20 09:39 | Diagnostic Imaging Report ---
Indication: Headache Technique: Contiguous 5 mm thick transaxial imaging of the head obtained in a Siemens Sensation [address] scanner. Soft tissue and bone windows generated. Total Dose length Product (DLP): [address] Dose Index Volume (CTDIvol): 70.38 mGy Comparison: None Findings: There is mild prominence of the ventricles, basal cisterns, and cerebral sulci consistent with atrophy. Mild, nonspecific, white matter hypoattenuation is noted throughout the brain consistent with chronic small vessel disease. Small focus of calcification in the left frontal lobe demonstrated. 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 There is no midline shift, edema, acute hemorrhage, mass effect, or abnormal extra-axial fluid collections. Bones and extra osseous soft tissues are unremarkable. Impression: No acute intracranial bleed, mass effect or edema. 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 Nonspecific white matter hypoattenuation probably due to chronic small vessel disease. The CT scanner at [facility] [place] [facility] is accredited by the [employer] and the scans are performed using protocols designed to limit radiation exposure to as low as reasonably achievable to attain images of sufficient resolution adequate for diagnostic evaluation.
--- NOTE | 2016-09-20 09:45 | General Progress Note ---
Assessment/Plan Problem List: (1) GI bleed ICD Codes: K92.2 - Gastrointestinal hemorrhage, unspecified SNOMED: 94371966 (2) Syncope ICD Codes: R55 - Syncope and collapse SNOMED: 386444245 Qualifiers: Qualified Codes: R55 - Syncope and collapse (3) DM2 (diabetes mellitus, type 2) ICD Codes: E11.9 - Type 2 diabetes mellitus without complications SNOMED: 70255524 (4) HTN (hypertension) ICD Codes: I10 - Essential (primary) hypertension SNOMED: 82110635 Assessment/Plan decrease IVF clears fu H&H transfuse if Hgb less than 7.5 Subjective ROS Limited/Unobtainable: Yes Allergies: Coded Allergies: No Known Allergies (Unverified , 09/17/16) Subjective no recurrent bleed Objective Last 24 Hour Vital Signs Date Time Temp Pulse Resp B/P Pulse Ox O2 Delivery O2 Flow Rate FiO2 09/20/16 08:00 97.4 78 18 142/48 96 Room Air 09/20/16 08:00 61 09/20/16 07:00 78 21 133/42 98 Room Air 09/20/16 06:00 56 22 111/45 98 Room Air 09/20/16 05:00 57 43 131/34 97 Room Air 09/20/16 04:00 97.1 59 17 132/36 97 Room Air 09/20/16 04:00 81 09/20/16 03:00 55 22 131/47 98 Room Air 09/20/16 02:00 54 20 127/39 97 Room Air 09/20/16 01:00 62 20 131/40 98 Room Air 09/20/16 00:00 97.9 54 17 120/32 97 Room Air 09/20/16 00:00 64 09/19/16 23:00 61 16 124/47 96 Room Air 09/19/16 22:00 57 18 121/45 95 Room Air 09/19/16 21:00 65 24 133/51 96 Room Air 09/19/16 20:00 98.0 57 18 132/37 96 Room Air 09/19/16 20:00 57 09/19/16 19:00 62 22 136/98 98 Room Air 09/19/16 18:53 Room Air 09/19/16 18:53 95 Room Air 09/19/16 18:00 69 16 137/48 99 Room Air 09/19/16 17:00 62 17 128/47 98 Room Air 09/19/16 16:00 66 09/19/16 16:00 97.5 66 21 132/36 97 Room Air 09/19/16 15:00 66 18 121/36 97 Room Air 09/19/16 14:00 67 25 113/31 99 Room Air 09/19/16 13:00 66 21 114/35 93 Room Air 09/19/16 12:00 68 09/19/16 12:00 97.1 68 22 116/35 97 Room Air 09/19/16 11:00 76 19 125/36 100 Room Air 09/19/16 10:00 97.4 70 14 113/30 95 Room Air Intake and Output 09/19/16 09/20/16 19:00 07:00 Intake Total 900 ml 1650 ml Output Total 1870 ml 1725 ml Balance -970 ml -75 ml IV Total 600 ml 1650 ml Blood Product 300 ml Output Urine Total 1250 ml 1725 ml Stool Total 620 ml # Voids 2 # Bowel Movements 5 2 Laboratory Tests 09/20/16 03:50: White Blood Count 6.3, Red Blood Count 2.51L, Hemoglobin 7.7L, Hematocrit 22.9L , Mean Corpuscular Volume 91, Mean Corpuscular Hemoglobin 30.6, Mean Corpuscular Hemoglobin Concent 33.6, Red Cell Distribution Width 13.4, Platelet Count 143L, Mean Platelet Volume 6.6, Neutrophils (%) (Auto) , Lymphocytes (%) ( Auto) , Monocytes (%) (Auto) , Eosinophils (%) (Auto) , Basophils (%) (Auto) , Neutrophils % (Manual) [Pending], Lymphocytes % (Manual) [Pending], Platelet Estimate [Pending], Platelet Morphology [Pending] Height (Feet): 5 Height (Inches): 1.00 Weight (Pounds): 160 General Appearance: alert EENT: normal ENT inspection Neck: supple Cardiovascular: normal rate Respiratory/Chest: decreased breath sounds Abdomen: normal bowel sounds, non tender, soft Extremities: non-tender FRANK KAUFFMAN Sep 20, 2016 09:45
[2016-09-20] MEDS ORDERED: Tubing Blood Filter IV ONE (10:21)
[2016-09-20] MEDS ORDERED: NS 275ml ONE (10:21)
[2016-09-20 10:30] LABS: BAND NEUTROPHILS % (MANUAL) 0 % (0-8); BASOPHILS % (MANUAL) 0 % (0-2); EOSINOPHILS % (MANUAL) 6 % (0-3); LYMPHOCYTES % (MANUAL) 40 % (20-45); NEUTROPHILS % (MANUAL) 53 % (45-75); PLATELET ESTIMATE ADEQUATE; PLATELET MORPHOLOGY NORMAL; TOTAL CELLS COUNTED 100
[2016-09-20 10:31] LABS: HYPOCHROMASIA 1+; POLYCHROMASIA OCCASIONAL
[2016-09-20] MEDS ORDERED: Tubing IV Secondary IV ONE (12:42)
[2016-09-20] MEDS ORDERED: 1/2 NS 1000ml IV ONE (12:42)
--- NOTE | 2016-09-20 15:57 | General Progress Note ---
Assessment/Plan Status: stable Assessment/Plan (1) Syncope ICD Codes: R55 - Syncope and collapse SNOMED: 994497220 Qualifiers: Qualified Codes: R55 - Syncope and collapse (2) Depression ICD Codes: F32.9 - Major depressive disorder, single episode, unspecified SNOMED: 68688372 (3) HTN (hypertension) ICD Codes: I10 - Essential (primary) hypertension SNOMED: 03847952 (4) DM2 (diabetes mellitus, type 2) ICD Codes: E11.9 - Type 2 diabetes mellitus without complications SNOMED: 33273038 (5) Acute blood loss anemia ICD Codes: D62 - Acute posthemorrhagic anemia SNOMED: 520328915 (6) GI bleed ICD Codes: K92.2 - Gastrointestinal hemorrhage, unspecified SNOMED: 32147144 Status: progressing Assessment/Plan - 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 Discussed w/ RN at bedside and with Consultants. Multiple questions asked by pt and family were answered, they were appreciative. Time of note may not reflect time of clinical encounter Subjective Date patient seen: Sep 20, 2016 Allergies: Coded Allergies: No Known Allergies (Unverified , 09/17/16) Subjective No acute events Hb drop this to 7, 7.7 on repeat IVF decreased Objective Last 24 Hour Vital Signs Date Time Temp Pulse Resp B/P Pulse Ox O2 Delivery O2 Flow Rate FiO2 09/20/16 15:00 62 21 135/61 96 Room Air 09/20/16 14:00 62 18 126/64 98 Room Air 09/20/16 13:00 65 25 140/34 99 Room Air 09/20/16 12:05 60 09/20/16 12:02 97.2 60 18 143/38 97 Room Air 09/20/16 11:00 69 22 121/85 98 Room Air 09/20/16 10:00 61 19 149/44 99 Room Air 09/20/16 09:00 62 16 135/45 98 Room Air 09/20/16 08:00 97.4 78 18 142/48 96 Room Air 09/20/16 08:00 61 09/20/16 07:00 78 21 133/42 98 Room Air 09/20/16 06:00 56 22 111/45 98 Room Air 09/20/16 05:00 57 43 131/34 97 Room Air 09/20/16 04:00 97.1 59 17 132/36 97 Room Air 09/20/16 04:00 81 09/20/16 03:00 55 22 131/47 98 Room Air 09/20/16 02:00 54 20 127/39 97 Room Air 09/20/16 01:00 62 20 131/40 98 Room Air 09/20/16 00:00 97.9 54 17 120/32 97 Room Air 09/20/16 00:00 64 09/19/16 23:00 61 16 124/47 96 Room Air 09/19/16 22:00 57 18 121/45 95 Room Air 09/19/16 21:00 65 24 133/51 96 Room Air 09/19/16 20:00 98.0 57 18 132/37 96 Room Air 09/19/16 20:00 57 09/19/16 19:00 62 22 136/98 98 Room Air 09/19/16 18:53 Room Air 09/19/16 18:53 95 Room Air 09/19/16 18:00 69 16 137/48 99 Room Air 09/19/16 17:00 62 17 128/47 98 Room Air 09/19/16 16:00 66 09/19/16 16:00 97.5 66 21 132/36 97 Room Air Intake and Output 09/19/16 09/20/16 19:00 07:00 Intake Total 900 ml 1650 ml Output Total 1870 ml 1725 ml Balance -970 ml -75 ml IV Total 600 ml 1650 ml Blood Product 300 ml Output Urine Total 1250 ml 1725 ml Stool Total 620 ml # Voids 2 # Bowel Movements 5 2 Laboratory Tests 09/20/16 03:50: White Blood Count 6.3, Red Blood Count 2.51L, Hemoglobin 7.7L, Hematocrit 22.9L , Mean Corpuscular Volume 91, Mean Corpuscular Hemoglobin 30.6, Mean Corpuscular Hemoglobin Concent 33.6, Red Cell Distribution Width 13.4, Platelet Count 143L, Mean Platelet Volume 6.6, Neutrophils (%) (Auto) , Lymphocytes (%) ( Auto) , Monocytes (%) (Auto) , Eosinophils (%) (Auto) , Basophils (%) (Auto) , Differential Total Cells Counted 100, Neutrophils % (Manual) 53, Lymphocytes % ( Manual) 40, Monocytes % (Manual) 1, Eosinophils % (Manual) 6H, Basophils % ( Manual) 0, Band Neutrophils 0, Platelet Estimate Adequate, Platelet Morphology Normal, Polychromasia Occasional, Hypochromasia 1+ Height (Feet): 5 Height (Inches): 1.00 Weight (Pounds): 160 Home Hernandez MD Sep 20, 2016 15:57
[2016-09-21] VITALS (7 sets, daily range): BP systolic 124–142; BP diastolic 30–56
[2016-09-21] MEDS ORDERED: Pantoprazole Inj IVP SCH (09:00)
[2016-09-21 09:48] LABS: BASOPHILS % (AUTO) 1.2 % (0.0-2.0); EOSINOPHILS % (AUTO) 4.6 % (0.0-3.0); LYMPHOCYTES % (AUTO) 24.7 % (20.0-45.0); MEAN CORPUSCULAR HEMOGLOBIN 30.1 PG (27.0-31.0); MEAN CORPUSCULAR HGB CONC 33.3 G/DL (32.0-36.0); MEAN CORPUSCULAR VOLUME 90 FL (80-99); MEAN PLATELET VOLUME 6.3 FL (6.5-10.1); MONOCYTES % (AUTO) 8.5 % (1.0-10.0); NEUTROPHILS % (AUTO) 60.9 % (45.0-75.0); PLATELET COUNT 206 K/UL (150-450); RED BLOOD COUNT 2.74 M/UL (4.20-5.40); RED CELL DISTRIBUTION WIDTH 13.2 % (11.6-14.8); WHITE BLOOD COUNT 6.8 K/UL (4.8-10.8)
[2016-09-21 10:05] LABS: ANION GAP 12 (5-15); CARBON DIOXIDE 27 mEQ/L (20-30); CHLORIDE 102 mEQ/L (98-107); CREATININE 0.7 mg/dL (0.5-0.9); HEMOLYSIS 7; POTASSIUM 3.4 mEQ/L (3.4-4.9); SODIUM 141 mEQ/L (135-145)
--- NOTE | 2016-09-21 12:06 | GI Progress Note ---
Assessment/Plan Problems: (1) GI bleed ICD Codes: K92.2 - Gastrointestinal hemorrhage, unspecified SNOMED: 54814499 (2) Acute blood loss anemia ICD Codes: D62 - Acute posthemorrhagic anemia SNOMED: 861748570 (3) Syncope ICD Codes: R55 - Syncope and collapse SNOMED: 019284438 Qualifiers: Qualified Codes: R55 - Syncope and collapse (4) DM2 (diabetes mellitus, type 2) ICD Codes: E11.9 - Type 2 diabetes mellitus without complications SNOMED: 14016984 (5) Hyperglycemia due to type 2 diabetes mellitus ICD Codes: E11.65 - Type 2 diabetes mellitus with hyperglycemia SNOMED: 489361919075358 Qualifiers: Qualified Codes: E11.65 - Type 2 diabetes mellitus with hyperglycemia Status: unchanged Status Narrative Discussed with Dr. Gu. Assessment/Plan outpatient SB capsule endoscopy to evaluate anemia monitor H&H, transfuse prn if Hgb less than 7.5 adv to ADA diet ppi fu labs Subjective Gastrointestinal/Abdominal: Reports: abdominal pain - improved, no symptoms Subjective denies rectal bleeding Objective Last 24 Hour Vital Signs Date Time Temp Pulse Resp B/P Pulse Ox O2 Delivery O2 Flow Rate FiO2 09/21/16 10:43 78 21 98 09/21/16 08:00 70 09/21/16 08:00 97.7 53 16 139/45 99 Room Air 09/21/16 04:00 44 09/21/16 04:00 97.7 78 16 127/56 93 Room Air 09/21/16 03:00 97.9 78 16 127/56 93 Room Air 09/21/16 01:00 49 16 142/38 98 Room Air 09/21/16 00:00 98.1 55 18 124/30 99 Room Air 09/21/16 00:00 69 09/20/16 23:00 51 20 124/30 96 Room Air 09/20/16 22:05 98 Room Air 09/20/16 22:05 Room Air 09/20/16 22:00 51 20 157/49 96 Room Air 09/20/16 21:00 65 20 157/49 96 Room Air 09/20/16 20:00 98.0 62 19 160/54 98 Room Air 09/20/16 20:00 62 09/20/16 19:00 62 19 160/54 98 Room Air 09/20/16 18:00 73 19 114/95 97 Room Air 09/20/16 17:03 61 14 139/37 97 Room Air 09/20/16 16:00 98.1 61 23 154/40 94 Room Air 09/20/16 16:00 62 09/20/16 15:00 62 21 135/61 96 Room Air 09/20/16 14:00 62 18 126/64 98 Room Air 09/20/16 13:00 65 25 140/34 99 Room Air 09/20/16 12:05 60 Intake and Output 09/20/16 09/21/16 19:00 07:00 Intake Total 2200 ml 0 ml Output Total 750 ml 1000 ml Balance 1450 ml -1000 ml Intake Oral 1050 ml 0 ml IV Total 1150 ml Output Urine Total 750 ml 1000 ml # Bowel Movements 5 1 Laboratory Tests Test 09/21/16 09:10 White Blood Count 6.8 K/UL (4.8-10.8) Red Blood Count 2.74 M/UL (4.20-5.40) L Hemoglobin 8.3 G/DL (12.0-16.0) L Hematocrit 24.8 % (37.0-47.0) L Mean Corpuscular Volume 90 FL (80-99) Mean Corpuscular Hemoglobin 30.1 PG (27.0-31.0) Mean Corpuscular Hemoglobin Concent 33.3 G/DL (32.0-36.0) Red Cell Distribution Width 13.2 % (11.6-14.8) Platelet Count 206 K/UL (150-450) Mean Platelet Volume 6.3 FL (6.5-10.1) L Neutrophils (%) (Auto) 60.9 % (45.0-75.0) Lymphocytes (%) (Auto) 24.7 % (20.0-45.0) Monocytes (%) (Auto) 8.5 % (1.0-10.0) Eosinophils (%) (Auto) 4.6 % (0.0-3.0) H Basophils (%) (Auto) 1.2 % (0.0-2.0) Sodium Level 141 mEQ/L (135-145) Potassium Level 3.4 mEQ/L (3.4-4.9) Chloride Level 102 mEQ/L (98-107) Carbon Dioxide Level 27 mEQ/L (20-30) Anion Gap 12 (5-15) Blood Urea Nitrogen 6 mg/dL (7-23) L Creatinine 0.7 mg/dL (0.5-0.9) Estimat Glomerular Filtration Rate mL/min (>60) Glucose Level 187 mg/dL (74-106) H Calcium Level 8.0 mg/dL (8.6-10.2) L Height (Feet): 5 Height (Inches): 1.00 Weight (Pounds): 160 General Appearance: alert, obese Cardiovascular: normal rate Respiratory/Chest: normal breath sounds, no respiratory distress Abdominal Exam: normal bowel sounds, soft, tender Leah Hernandez N.P. Sep 21, 2016 12:06
[2016-09-21 12:16] LABS: OTHERS PATHOLOGIST COMMENT
--- NOTE | 2016-09-21 16:05 | Discharge Summary ---
Discharge Summary Hospital Course Date of Admission Sep 17, 2016 at 06:10 Date of Discharge 09/21/16 Admitting Diagnosis SYNCOPE HPI Deborah Dayron Mcgraw is a 80 year old female who was admitted on Sep 17, 2016 at 06:10 for Syncope and collapse with THI Consultations GI Procedures EGD and colo Hospital Course Pt was admitted to telemetry for eval of syncope. On hospital day #1, pt developed hematemesis, with resultant acute blood loss anemia with Hg 5.5 2/2 UGIB. EGD revealed gastritis. Pt received IV PPI. Was transferred to ICU post procedure 2/2 persistent bleed. Colonoscopy was performed the following day. Pt improved clinically. bx showed no H pylori. Was tolerating diet Discharge Condition Upon Discharge: stable Discharge Disposition Patient was discharged to home Discharge Diagnoses: (1) Head injury, acute (2) Hyperglycemia due to type 2 diabetes mellitus (3) Depression (4) DM2 (diabetes mellitus, type 2) (5) HTN (hypertension) (6) Syncope (7) Acute blood loss anemia (8) GI bleed Jessica Meeks M.D. Sep 21, 2016 16:05
--- NOTE | 2016-09-24 12:37 | Diagnostic Imaging Report ---
APPROVED REPORT CPT Code: 09223 Present Symptoms Lower Extremity Pain: Bilateral BILATERAL: Imaging reveals a patent deep venous system bilaterally. There is no evidence of thrombus within the femoral, popliteal or tibial segments. The greater saphenous veins are also within normal limits. Doppler indicates normal spontaneous flow within these segments.
--- NOTE | 2016-10-24 03:13 | Cardiology Report ---
APPROVED REPORT EKG Measurement Heart [id number] TN [id number] Sinus bradycardia Cannot rule out Inferior infarct, age undetermined Abnormal ECG
== END 2016-09-21 17:06 | disposition home or self-care (01) | DRG 312 ==
LOC: EDBD 05:31 → EMR 05:55 → INTOOBSV 06:10 → OBSVTOIN 06:10 → 2E 06:10 → EDBEDREQ 06:43 → ICU 20:41 → 2E 09-21 02:07
PROC: 30233N1 Transfusion of Nonautologous Red Blood Cells into Peripheral Vein, Percutaneous Approach (ICD-10-PCS; principal; 2016-09-17)
PROC: 0DB68ZX Excision of Stomach, Via Natural or Artificial Opening Endoscopic, Diagnostic (ICD-10-PCS; 2016-09-18)
PROC: 0DJD8ZZ Inspection of Lower Intestinal Tract, Via Natural or Artificial Opening Endoscopic (ICD-10-PCS; 2016-09-19)
DX: I95.1 Orthostatic hypotension (principal); K92.2 Gastrointestinal hemorrhage, unspecified; E11.65 Type 2 diabetes mellitus with hyperglycemia; D62 Acute posthemorrhagic anemia; S09.90XA Unspecified injury of head, initial encounter; W19.XXXA Unspecified fall, initial encounter; Y92.009 Unspecified place in unspecified non-institutional (private) residence as the place of occurrence of the external cause; I10 Essential (primary) hypertension; F32.9 Major depressive disorder, single episode, unspecified; K29.70 Gastritis, unspecified, without bleeding; E78.5 Hyperlipidemia, unspecified; K21.9 Gastro-esophageal reflux disease without esophagitis; Z23 Encounter for immunization
CPT/HCPCS: 36415; 70450; 71010; 80048; 80053; 81003; 82378; 82550; 82553; 84484; 85007; 85025; 85610; 85730; 86850; 86900; 86901; 86920; 90732; 93005; 93970; 94003; 94150; 94760; J2405